=== PATIENT | female | born 1960 | race Caucasian/White ===

== ENCOUNTER → 2023-07-18 12:46 | Outpatient (REF) | payer BC, SELFPAY | LOC: WDC 12:46 | PROVIDERS: ATTENDING PHYSICIAN Obstetrics & Gynecology Gynecology | DX: Z12.31 Encounter for screening mammogram for malignant neoplasm of breast (principal) | CPT/HCPCS: 77063; 77067 ==

== ENCOUNTER → 2024-01-02 09:12 | Outpatient (REF) | payer BC, SELFPAY | LOC: RAD 09:12 | PROVIDERS: ATTENDING PHYSICIAN Family Medicine; FAMILY PHYSICIAN Obstetrics & Gynecology Gynecology | DX: M81.0 Age-related osteoporosis without current pathological fracture (principal) | CPT/HCPCS: 77080 ==